=== PATIENT | male | born 2000 | race Two or more races ===

== ENCOUNTER 2024-12-28 23:44 | Emergency (ER) | payer MEDICAID, SELFPAY ==
[2024-12-28 23:45] VITALS: BMI 29.2
[2024-12-29 00:30] VITALS: BP 100/64; PULSE 105; RESP 20; TEMP 37.3; O2SAT 99
--- NOTE | 2024-12-29 01:47 | PD.EDRME ---
Rapid Medical Screening Exam RME Arrival date/time: 12/28/24 23:44 Chief Complaint: Skin/Abscess/Foreign Body Time Seen by Provider: 12/29/24 01:09 Vital signs: Vital Signs Temperature 99.1 F 12/29/24 00:30 Pulse Rate 105 H 12/29/24 00:30 Respiratory Rate 20 12/29/24 00:30 Blood Pressure 100/64 12/29/24 00:30 Pulse Oximetry (%) 99 12/29/24 00:30 Oxygen Delivery Method Room Air 12/29/24 00:30 Vital signs reviewed by provider: Yes RME Narrative: 24-year-old male with a history of endocarditis presents to the ED with a complaint of left knee swelling, erythema, warmth, and tenderness, as well as small abscess. He initially thought it was a pimple or spider bite and attempted to squeeze it. He is concerned due to his previous history of endocarditis. I have greeted and performed a focused initial assessment of this patient. A comprehensive ED assessment and evaluation of the patient, analysis of all test results, and completion of the medical decision making process will be conducted by additional ED providers.
--- NOTE | 2024-12-29 03:19 | PC.NURSE ---
CALLED FOR LAB N/A [id number], [id number], [id number] pt eloped the ER
== END 2024-12-29 03:19 | disposition left against medical advice (07) ==
LOC: SERX 12-29 03:29
PROVIDERS: Emergency Provider Emergency Medicine
DX: M25.462 Effusion, left knee (principal); L02.91 Cutaneous abscess, unspecified; Z53.29 Procedure and treatment not carried out because of patient's decision for other reasons
CPT/HCPCS: 80053; 83605; 85025; 86140; 99281

== ENCOUNTER 2025-01-30 12:19 | Emergency (ER) | payer MEDICAID, SELFPAY ==
[2025-01-30 12:23] VITALS: BP 134/85; PULSE 98; RESP 16; RESP 18; TEMP 37.2; O2SAT 99; BMI 28.8
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
--- NOTE | 2025-01-30 12:43 | XR_ITS ---
Examination: Shoulder,right, 3 views Technique: Shoulder AP internal rotation, AP external rotation, Y view shoulder, 3 views Exam date and time :January 30, 2025 1508 hrs. Indications: Injury to the shoulder today, shoulder pain. Findings: No shoulder fracture or dislocation. No AC joint separation Impression: No shoulder fracture or dislocation
--- NOTE | 2025-01-30 12:43 | XR_ITS ---
Examination: Right hand 2 views Technique one AP lateral right hand 2 views Date and time of exam: January 30, 2025, 1508 hrs. Indications: Injury to the hand today, hand pain. Findings: Old fracture deformities second, fourth and fifth metacarpals No acute fracture Impression: No acute fracture
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
--- NOTE | 2025-01-30 12:43 | XR_ITS ---
Examination: Forearm, right, 2 views. Technique: Forearm, AP, lateral 2 views Date and time of exam: January 30, 2025, 1504 hrs. Indications: Injury to the forearm today, forearm pain Findings: Shaft of the radius and ulna appear intact Small old bone density adjacent to the proximal ulna, clinical correlation advised Impression: No definite acute fracture Suggest short-term follow-up elbow films as clinically warranted
--- NOTE | 2025-01-30 12:43 | XR_ITS ---
Examination: Humerus 2 views right Technique: Humerus, AP lateral 2 views Date and time of exam: 1508 hrs. Indications: Injury to the arm today, arm pain. Findings: The films are overpenetrated Humeral head neck and shaft appear intact Impression: No acute fracture
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
[2025-01-30] MEDS: IBUPROFEN TAB 400 MG TABLET 800 MG PO (16:07)
== END 2025-01-31 19:30 | disposition home or self-care (01) ==
PROVIDERS: Emergency Provider Family Medicine
DX: S01.01XA Laceration without foreign body of scalp, initial encounter (principal); S69.91XA Unspecified injury of right wrist, hand and finger(s), initial encounter; S59.911A Unspecified injury of right forearm, initial encounter; S09.90XA Unspecified injury of head, initial encounter; S19.9XXA Unspecified injury of neck, initial encounter; S59.901A Unspecified injury of right elbow, initial encounter; S49.91XA Unspecified injury of right shoulder and upper arm, initial encounter; S29.9XXA Unspecified injury of thorax, initial encounter; Y00.XXXA Assault by blunt object, initial encounter; Y93.01 Activity, walking, marching and hiking; Y92.410 Unspecified street and highway as the place of occurrence of the external cause
CPT/HCPCS: 70450; 71111; 72125; 73030; 73060; 73080; 73090; 73120; 99284; A9270

== ENCOUNTER 2025-06-15 13:14 | Emergency (ER) | payer MEDICAID, SELFPAY ==
[2025-06-15 13:18] VITALS: BP 125/77; PULSE 88; RESP 19; TEMP 36.7; O2SAT 100; BMI 32.1
[2025-06-15 13:20] VITALS: PULSE 98; RESP 16; O2SAT 99
--- NOTE | 2025-06-15 14:10 | XR_ITS ---
EXAMINATION: AP chest single view TECHNIQUE: AP portable sitting chest single view Date and time: June 15, 2025, 1415 hours, comparison January 30, 2025 INDICATIONS: Syncope today. FINDINGS: Median sternotomy wires Normal heart size No aspiration pneumonia The osseous structures are intact IMPRESSION: Negative for aspiration pneumonia
--- NOTE | 2025-06-15 14:10 | EKG_ITS ---
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
--- NOTE | 2025-06-15 14:15 | PD.EDSYNC ---
ED Syncope RME/HPI General Chief Complaint: Syncope / Near Syncope Stated Complaint: SYNCOPE Time Seen by Provider: 06/15/25 13:41 Source: patient Arrival date/time: 06/15/25 13:14 Mode of arrival: EMS Limitations: no limitations RME / HPI RME / HPI narrative: Patient is a 25-year-old male with medical history notable for infective endocarditis, status post mitral valve repair, prior methamphetamine use currently sobered up in the emergency department concerns for having a syncopal event while at work earlier today. 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 Patient did not hit his head. Patient does not take any medications. Does not take any aspirin or blood thinners. Patient is not complaining any head neck neck pain chest pain abdominal pain arm or lower extremity pain. No back pain. Denies any chest pain or palpitations prior to the event. Related Data Home Medications ?Medication ?Instructions ?Recorded ?Confirmed cefazolin 2 gram/20 mL in sterile 2 g IV Q8H 12/03/17 12/03/17 water intravenous syringe Allergies Allergy/AdvReac Type Severity Reaction Status Date / Time No Known Allergies Allergy Verified 06/15/25 13:25 ED Exam General Limitations: Present no limitations Head Head exam: Present atraumatic and normocephalic Eye Eye exam: Present normal appearance and PERRL ENT ENT exam: Present normal exam and normal oropharynx Neck Neck exam: Present normal inspection and full ROM Chest Chest inspection: Present normal inspection and symmetric chest wall rise Respiratory Respiratory exam: Present normal lung sounds bilaterally; Absent respiratory distress Abdominal Exam Abdominal exam: Present soft; Absent distention, tenderness or guarding Extremities Exam Extremities exam: Present normal inspection Neurological Exam Neurological exam: Present alert, oriented X3, CN II-XII intact and other Psychiatric Psychiatric exam: Present normal affect and normal mood Course Quality Measures none Orders Category Date Time Status EKG (ED ONLY) *Do not use* NOW Care 06/15/25 14:11 Completed CXR [XR chest 1V] Stat Exams 06/15/25 14:10 Completed EKG (ED Only) Stat Exams 06/15/25 14:10 Draft BNP [B-Type Natriuretic Peptide] Stat Lab 06/15/25 14:25 Completed CBC Stat Lab 06/15/25 14:25 Completed CMP [Comprehensive Metabolic Panel] Stat Lab 06/15/25 14:25 Completed Drug Screen,Urine Stat Lab 06/15/25 16:29 Completed T4 (Thyroxine) Stat Lab 06/15/25 14:25 Completed TSH [Thyroid Stimulating Hormone] Stat Lab 06/15/25 14:25 Completed Troponin I Stat Lab 06/15/25 14:25 Completed Troponin I Stat Lab 06/15/25 17:11 Completed UA, C/S IF [Urinalysis, C/S if Indicated] Stat Lab 06/15/25 16:29 Completed Urine Culture Stat Lab 06/15/25 16:29 Received Ringers Lactated 1000 ml [Lactated Ringers] 1,000 ml Med 06/15/25 16:08 Discontinued IV 999 mls/hr Ringers Lactated 500 ml [Lactated Ringers] 500 ml Med 06/15/25 15:19 Discontinued IV 500 mls/hr Vital Signs Vital signs: Vital Signs Temperature 98.1 F 06/15/25 13:18 Pulse Rate 88 06/15/25 13:18 Respiratory Rate 19 06/15/25 13:18 Blood Pressure 125/77 06/15/25 13:18 Pulse Oximetry (%) 100 06/15/25 13:18 Oxygen Delivery Method Room Air 06/15/25 13:18 Syncope MDM Narrative MDM Narrative:: Patient is a 25-year-old male with medical history notable for infective endocarditis s/p treatment, mitral valve repair, prior polysubstance use is in the emergency department with concerns for syncopal episode earlier today. Vital signs and exam as listed. Concern for ACS arrhythmia electrolyte abnormality viral syndrome urinary tract infection among others. Ordered labs EKG chest x-ray. Patient received 500 cc of fluid by EMS prior to arrival. EKG performed today at 1415 notable for sinus rhythm, CT 215, normal QT, nonspecific T wave changes, no cardiac alert. Labs without acute hematologic abnormality, no significant metabolic disturbance, troponin not elevated, BNP not elevated thyroid studies unremarkable. Chest x-ray negative. Will order repeat troponin, provide patient with 500 cc of fluid given no signs of fluid overload. Repeat troponin unremarkable. On reevaluation multiple times patient hemodynamically stable nondistressed ambulating with any difficulty. 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 Patient data External records reviewed:: [facility] previous records Clinical information provided by:: patient and family Social determinants that could affect healthcare access:: substance use Patient has the following chronic illnesses:: Infective endocarditis How is presenting disease/condition affected by chronic disease/condition?: exacerbated by Evaluation data The following diagnostics were reviewed and interpreted by me:: lab results, radiology exam(s) and EKG tracing(s) Lab and/or radiology exams considered but not ordered:: None Interpretation Summary: See MDM Medications / Prescriptions Medications or Prescriptions considered but not ordered:: None Medication administrations:: Medication Administration History Discontinued Medications Lactated Ringer's (Lactated Ringers) 500 mls @ 500 mls/hr IV .Q1H ONE Stop: 06/15/25 16:18 Last Admin: 06/15/25 16:10 Dose: Not Given Documented By: TALITA Non-Admin Reason: Duplicate Medication on eMAR Lactated Ringer's (Lactated Ringers) 1,000 mls @ 999 mls/hr IV .Q1H1M ONE Stop: 06/15/25 17:08 Last Admin: 06/15/25 16:11 Dose: 999 mls/hr Documented By: TALITA See above Consultations Consultation(s) initiated? (list below): No Diagnosis Syncope Differential Diagnosis: other (See MDM) Most likely diagnosis given after review of the tests above:: Syncope Admission Indicated Admission indicated?: not indicated Admission Request Was there a request for admission?: No Disposition Plan Disposition Plan: Discharge Discharge Attestation Discharge Attestation: The patient and all family members were given an opportunity to ask questions and understood the discharge instructions. Discharge instructions specifically effects, indications for sooner follow up or return to the emergency department, and the expected course of current diagnosis. Patient condition: Stable Discharge Plan Plan Patient Disposition: HOME (Self Care) Prescriptions/Referrals Prescriptions/Med Rec: No Action cefazolin in sterile water 2 gram/20 mL Syringe 2 g IV Q8H Referrals: Ti Valdes MD [Primary Care Provider, Family Practice] - In 1 week Problem List Clinical Impression: Syncope Patient/Caregiver Discharge Instructions Education Materials: Causes of Syncope Additional Instructions: Por favor, establezca julien consulta con un cardi?logo esta semana. Le recomiendo encarecidamente que busque recursos que le ayuden a mantener la sobriedad de por oscar. Regrese de inmediato si aileen s?ntomas empeoran o presenta nuevos s?ntomas preocupantes. Print Language: Citizen Of [place] Stand Alone Forms: Jesika Award Info., Patient Portal Info Letter
[2025-06-15 14:36] LABS: Basophils # (Auto) 0.0 Thou/mm3 (0.0-0.2); Basophils % (Auto) 0 % (0-2.5); Eosinophils # (Auto) 0.1 Thou/mm3 (0.0-0.5); Eosinophils % (Auto) 2 % (0-10); Hematocrit 42.9 % (41.0-53.0); Hemoglobin 13.5 g/dL (13.5-16.0); Immature Granulocytes Auto 0.02 Thou/mm3 (0.00-0.00); Lymphocytes # (Auto) 1.6 Thou/mm3 (1.0-4.8); Lymphocytes % (Auto) 27 % (10-50); Mean Corpuscular HGB Conc 31.5 g/dl (31.0-37.0); Mean Corpuscular Hemoglobin 26.8 pg (25.0-35.0); Mean Corpuscular Volume 85 fL (80-100); Monocytes # (Auto) 0.6 Thou/mm3 (0.0-0.8); Monocytes % (Auto) 10 % (0-12); Neutrophils # (Auto) 3.7 Thou/mm3 (1.8-7.7); Neutrophils % (Auto) 61 % (37-80); Nucleated Red Blood Cell # 0.00 Thou/mm3 (0.00-0.00); Nucleated Red Blood Cell % 0 /100 WBC (0); Platelet Count 232 Thou/mm3 (140-440); RDW Standard Deviation 42.4 fL (35.1-43.9); Red Blood Count 5.04 Miln/mm3 (4.50-5.90); White Blood Count 6.0 Thou/mm3 (3.8-10.6)
[2025-06-15 14:45] VITALS: BP 124/80; PULSE 84; RESP 16; TEMP 36.6; O2SAT 100
[2025-06-15 14:57] LABS: Alanine Aminotransferase 27 U/L (10-49); Albumin, Serum 4.5 gm/dL (3.5-5.0); Albumin/Globulin Ratio 1.8 (1.2-2.2); Alkaline Phosphatase 76 U/L (46-116); Anion Gap 9 (7-16); Aspartate Amino Transferase 39 U/L (0-34); BUN/Creatinine Ratio 6 Ratio (12-20); Bilirubin,Total 0.4 mg/dL (0.3-1.2); Blood Urea Nitrogen 7 mg/dL (9-23); Calcium 9.3 mg/dL (8.3-10.6); Calcium (Corrected) 9.3 mg/dL (8.5-10.1); Carbon Dioxide 27.2 mMol/L (20.0-31.0); Chloride 106 mMol/L (98-107); Creatinine (Component) 1.1 mg/dL (0.6-1.3); Estimated Creatinine Clearance 126.2 mL/min (>60); Globulin 2.5 gm/dL (2.3-3.5); Glucose 99 mg/dL (74-106); Osmolality,Calculated 281 (275-295); Potassium 4.5 mMol/L (3.4-5.1); Sodium 142 mMol/L (136-145); Thyroid Stimulating Hormone 4.38 uIU/mL (0.55-4.78); Total Protein 7.0 gm/dL (5.7-8.2); Troponin I < 0.002 ng/mL (0.0-0.045); eGFR > 60 See Note
[2025-06-15 14:59] LABS: B-Type Natriuretic Peptide < 20 pg/mL (0-100)
[2025-06-15 15:10] LABS: T4 (Thyroxine) 6.6 mcg/dL (4.5-10.9)
[2025-06-15] MEDS: RINGERS LACTATED 1000 ML 1,000 ML 999 ML IV (16:11)
[2025-06-15 16:33] LABS: Collection Type, Urine Clean Catch
[2025-06-15 16:43] LABS: Bacteria,Urine 1+; Bilirubin,Urine Negative (Negative); Blood,Urine Negative (Negative); Clarity,Urine Clear (Clear/Hazy); Color,Urine Yellow (Lt Yel-Yel); Glucose, Urine Negative (Negative); Ketones,Urine Negative (Negative); Leukocyte Esterase,Urine Positive (Negative); Nitrite,Urine Negative (Negative); PH,Urine 6.0 (5.0-7.0); Protein,Urine 1+ (Neg - Trace); RBC,Urine 5 /hpf (0-3); Specific Gravity,Urine 1.040 (1.001-1.035); Squamous Epithelial Cell,Urine 2 /hpf (0-5); Urobilinogen,Urine 4.0 mg/dL (0.0-1.0); WBC,Urine 5 /hpf (0-5)
[2025-06-15 16:48] LABS: Amphetamine/Methamp Scrn,U Positive (Negative); Barbiturate Screen,Urine Negative (Negative); Benzodiazepines Screen,Urine Negative (Negative); Benzoylecgonine Screen, Ur Negative (Negative); Fentanyl Screen,Urine Negative (Negative); Opiate Screen,Urine Negative (Negative); THC Screen,Urine Negative (Negative)
[2025-06-15 16:55] LABS: Culture Indicated,Urine Yes; Sperm,Urine Present
[2025-06-15 17:16] VITALS: BP 121/75; PULSE 75; RESP 18; TEMP 36.6; O2SAT 100
[2025-06-15 17:36] LABS: Troponin I < 0.002 ng/mL (0.0-0.045)
[2025-06-15 18:22] VITALS: BP 124/77; PULSE 76; RESP 15; TEMP 36.6; O2SAT 98
== END 2025-06-15 18:35 | disposition home or self-care (01) ==
PROVIDERS: Emergency Provider Emergency Medicine; PCP Family Medicine
DX: R55 Syncope and collapse (principal)
CPT/HCPCS: 36415; 71045; 80053; 80307; 81001; 83880; 84436; 84443; 84484; 85025; 87077; 87086; 87186; 93005; 96360; 96361; 99282; J7120